=== PATIENT | male | born 1985 | race Caucasian/White ===

== ENCOUNTER 2019-02-13 00:13 | Emergency (ER) | payer BC, OTHER ==
--- NOTE | 2019-02-13 01:10 | ED ---
Complex/Multi-Sys Presentation - HPI Summary HPI Summary: Patient is a 33 y/o M presenting to ED for complaints of episodes of confusion, chills, tremors and SOB. He states that around two months ago, he had a colonoscopy and endoscopy due to concerns that the patient may have Crohn's disease. These procedures resulted negative. Some time shortly afterwards, while patient was travelling via airplane, he had an episode of tremors, chills , palor, confusion, dizziness and diaphoresis. He states that he was brought to ED and was admitted for low sodium. After this initial episode, he states that he continued to have episodes of similar Sx and has been having low levels of electrolytes. He states that he has been drinking pedialyte to combat Sx. Patient additionally notes that he has been losing weight and feeling fatigued. Patient is a type 1 diabetic and reports most recent BG was 140. Patient notes that he can feel episodes of Sx onset and notes that he occasionally gets chest pain with these episodes. He reports that he has chest pain at present. Sx are aggravated by exertion and bowel movements. He notes that he gets abdominal pain after these episodes resolve. Patient states that for the past three days, episodes of Sx have been onsetting without any exertion. Episodes last around 30 -60 minutes. On triage, pain is rated 4/10, nothing is noted to aggravate/ alleviate Sx. Home medications and allergies are reviewed. - History Of Current Complaint Chief Complaint: EDWeakness Time Seen by Provider: 02/13/19 01:08 Hx Obtained From: Patient Onset/Duration: Lasting Weeks - past two months, Worse Since - three days ago Timing: Intermittent, Lasting:, Minutes - 30-60 minutes Severity Currently: Moderate Location: Pain At: - chest, abdomen Aggravating Factor(s): exertion, bowel movements Alleviating Factor(s): pedialyte Associated Signs And Symptoms: Positive: Confusion, Dizziness, SOB, Chest Pain, Abdominal Pain, Other - positive - tremors, chills, palor, diaphoresis, weight loss, fatigue - Allergies/Home Medications Allergies/Adverse Reactions: Allergies Allergy/AdvReac Type Severity Reaction Status Date / Time No Known Allergies Allergy Verified 02/13/19 00:22 Home Medications: Home Medications Insulin LISPRO* [HumaLOG*] 1 unit SUBCUT SEE INSTRUCTIONS 02/13/19 [History Confirmed 02/13/19] PMH/Surg Hx/FS Hx/Imm Hx Sensory History: Denies: Hx Legally Blind, Hx Deafness Opthamlomology History: Denies: Hx Legally Blind EENT History: Denies: Hx Deafness Infectious Disease History: No Infectious Disease History: Denies: Traveled Outside the [place] in Last 30 Days - Family History Known Family History: Negative: Blood Disorder - Social History Alcohol Use: Rare Substance Use Type: Reports: None Smoking Status (MU): Never Smoked Tobacco Review of Systems Constitutional: Other - positive - tremors, weight loss Positive: Chills, Fatigue, Skin Diaphoresis Positive: Chest Pain Positive: Shortness Of Breath Positive: Abdominal Pain Skin: Other - positive - palor Neurological: Other - positive - dizziness Psychological: Other - positive - confusion All Other Systems Reviewed And Are Negative: Yes Physical Exam - Summary Physical Exam Summary: Appearance: Well-appearing, Well-nourished, lying in bed comfortably Skin: Warm, dry, no obvious rash Eyes: sclera anicteric, no conjunctival pallor ENT: mucous membranes moist, pharynx appears normal Neck: Supple, nontender Respiratory: Clear to auscultation, no signs of respiratory distress Cardiovascular: Normal S1, S2. No murmurs. Normal distal pulses in tibial and radial bilaterally. Abdomen: Soft, nontender, normal active bowel sounds present Musculoskeletal: Normal, Strength/ROM Intact Neurological: A&Ox3, awake and alert, mentation is normal, speech is fluent and appropriate Psychiatric: affect is normal, does not appear anxious or depressed Triage Information Reviewed: Yes Vital Signs On Initial Exam: Initial Vitals Temp Pulse Resp BP Pulse Ox 99.3 F 71 18 132/77 99 02/13/19 00:22 02/13/19 00:22 02/13/19 00:22 02/13/19 00:22 02/13/19 00:22 Vital Signs Reviewed: Yes Diagnostics - Vital Signs Vital Signs Temp Pulse Resp BP Pulse Ox 02/13/19 00:22 99.3 F 71 18 132/77 99 - Laboratory Lab Results: Lab Results 02/13/19 Range/Units 00:52 POC Glucose (mg/dL) 160 H (70-100) mg/dL Result Diagrams: 02/13/19 01:15 02/13/19 01:15 Lab Statement: Any lab studies that have been ordered have been reviewed, and results considered in the medical decision making process. Complex Multi-Symp Course/Dx Course Of Treatment: Patient is a 33 y/o M presenting to ED for complaints of episodes of confusion, chills, tremors and SOB. He states that around two months ago, he had a colonoscopy and endoscopy due to concerns that the patient may have Crohn's disease. These procedures resulted negative. Some time shortly afterwards, while patient was travelling via airplane, he had an episode of tremors, chills, palor, confusion, dizziness and diaphoresis. He states that he was brought to ED and was admitted for low sodium. After this initial episode, he states that he continued to have episodes of similar Sx and has been having low levels of electrolytes. He states that he has been drinking pedialyte to combat Sx. Patient additionally notes that he has been losing weight and feeling fatigued. Patient is a type 1 diabetic and reports most recent BG was 140. Patient notes that he can feel episodes of Sx onset and notes that he occasionally gets chest pain with these episodes. He reports that he has chest pain at present. Sx are aggravated by exertion and bowel movements. He notes that he gets abdominal pain after these episodes resolve. Patient states that for the past three days, episodes of Sx have been onsetting without any exertion. Episodes last around 30-60 minutes. Physical exam is unremarkable. Bloodwork was obtained. Labs showed Hgb 13.8, Hct 40, creatinine 1.23, glucose 180. UA was negative. During ED course, patient received bentyl 10 mg PO. He was given a prescription for Bentyl and was advised to follow up with PCP for outpatient workup. - Diagnoses Provider Diagnoses: Malaise Discharge ED - Sign-Out/Discharge Documenting (check all that apply): Patient Departure - discharge Patient Received Moderate/Deep Sedation with Procedure: No - Discharge Plan Condition: Stable Disposition: HOME Prescriptions: Dicyclomine CAP* [Bentyl CAP*] 10 mg PO ACHS PRN #30 cap PRN Reason: Pain - Moderate Patient Education Materials: Fatigue (ED) Referrals: [facility] [Outside] Additional Instructions: I am not sure what is causing these spells, but the tests we did tonight did not show any significant abnormalities that would provide an explanation. I would recommend making an appt with the [facility] to go over this and see what further testing should be done. - Billing Disposition and Condition Condition: STABLE Disposition: Home - Attestation Statements Document Initiated by Larry: Yes Documenting Scribe: ADELFO CORDOBA Provider For Whom Larry is Documenting (Include Credential): ANA HATHAWAY MD Scribe Attestation: ADELFO Seth, scribed for ANA HATHAWAY MD on 02/13/19 at 0641. Scribe Documentation Reviewed: Yes Provider Attestation: The documentation as recorded by the ADELFO hutchinson accurately reflects the service I personally performed and the decisions made by me, ANA HATHAWAY MD Status of Scribe Document: Viewed
[2019-02-13 01:23] LABS: ABS Basophils 0.1 10^3/ul (0-0.2); ABS Eosinophils 0.4 10^3/ul (0-0.6); ABS Lymphocytes 1.6 10^3/ul (1.0-4.8); ABS Monocytes 0.4 10^3/ul (0-0.8); ABS Neutrophils 2.7 10^3/ul (1.5-7.7); Eosinophil % 7.9 %; Hematocrit 40 % (42-52); Hemoglobin 13.8 g/dL (14.0-18.0); Lymphocyte % 30.5 %; Mean Corpuscular HGB Conc 35 g/dL (31-36); Mean Corpuscular Hemoglobin 31 pg (27-31); Mean Corpuscular Volume 91 fL (80-94); Mean Platelet Volume 8.8 fL (7.4-10.4); Nucleated Red Blood Cells % 0.1; Platelet Count 200 10^3/uL (150-450); Red Cell Distribution Width 12 % (10-15); White Blood Count 5.1 10^3/uL (3.5-10.8)
[2019-02-13 01:44] LABS: Albumin 4.8 g/dL (3.2-5.2); BUN/Creatinine Ratio 13.8 (8-20); Calcium 9.7 mg/dL (8.6-10.3); EGFR African American 82.5 (>60); EGFR Non-African American 68.2 (>60); Globulin 2.4 g/dL (2-4); Potassium 4.1 mmol/L (3.5-5.0); Total Bilirubin 0.4 mg/dL (0.2-1.0); Total Protein 7.2 g/dL (6.4-8.9)
[2019-02-13] MEDS ORDERED: Dicyclomine CAP* 10 MG PO ONE (01:58)
[2019-02-13 02:22] LABS: TSH (Thyroid Stimulating Horm) 5.28 mcIU/mL (0.34-5.60)
[2019-02-13 02:27] LABS: Urine Appearance Clear; Urine Bilirubin Negative (Negative); Urine Blood Negative (Negative); Urine Color Yellow; Urine Glucose Negative (Negative); Urine Ketones Negative (Negative); Urine Nitrite Negative (Negative); Urine Protein Negative (Negative); Urine Specific Gravity 1.012 (1.010-1.030); Urine Urobilinogen Negative (Negative)
[2019-02-13 03:39] VITALS: BP 113/69
== END 2019-02-13 03:40 | disposition home or self-care (01) ==
LOC: ED 00:13
DX: R53.81 Other malaise (principal); E10.9 Type 1 diabetes mellitus without complications; Z79.4 Long term (current) use of insulin
CPT/HCPCS: 36415; 80053; 81003; 83605; 83735; 84443; 85025; 99283; A9270-GY